=== PATIENT | female | born 2000 | race Asian ===

== ENCOUNTER 2018-01-22 22:24 | Emergency (ER) | payer BC, OTHER ==
[~2018-01-22] VITALS: Ht 175.3 cm; Wt 90.7 kg
[2018-01-22 22:42] VITALS: BP 132/69
== END 2018-01-22 23:40 | disposition home or self-care (01) ==
LOC: ER 22:24
DX: S90.562A Insect bite (nonvenomous), left ankle, initial encounter (principal); W57.XXXA Bitten or stung by nonvenomous insect and other nonvenomous arthropods, initial encounter; Y93.89 Activity, other specified; Y99.8 Other external cause status; Y92.89 Other specified places as the place of occurrence of the external cause